=== PATIENT | male | born 1985 | race Caucasian/White ===

== ENCOUNTER 2017-08-31 17:07 | Emergency (ER) | payer OTHER ==
[~2017-08-31] VITALS: Ht 182.9 cm; Wt 115.7 kg
[~2017-08-31 17:07] MED LIST: Keflex500 MG PO
[2017-08-31] MEDS ORDERED: LOSA50 PO (17:37)
[2017-08-31] MEDS ORDERED: METO100ER PO (17:37)
[2017-08-31] MEDS ORDERED: Crutch1 EACH MISC (17:48)
[2017-08-31] MEDS ORDERED: Norco 5-325 Ta1 EACH PO (17:49)
== END 2017-08-31 17:54 | disposition home or self-care (01) ==
LOC: ER 17:07
DX: S79.921A Unspecified injury of right thigh, initial encounter (principal); X58.XXXA Exposure to other specified factors, initial encounter; Z88.0 Allergy status to penicillin; Z88.1 Allergy status to other antibiotic agents
CPT/HCPCS: 99283